=== PATIENT | female | born 1965 | race African-American/Black ===

== ENCOUNTER 2022-06-02 06:55 | Day surgery (SDC) | payer MEDICAID, SELFPAY ==
[2022-06-02] VITALS (11 sets, daily range): BP systolic 139–189; BP diastolic 61–76; PULSE 52–81; RESP 14–18; TEMP 36.1–36.7; O2SAT 94–100; BMI 24.2
[2022-06-02] MEDS: SODIUM CHLORIDE 0.9 % (FLUSH) 10 ML SYRINGE IVF (07:22)
[2022-06-02] MEDS: LACTATED RINGERS 1000 ML 1,000 ML 100 ML IV (07:23)
[2022-06-02] MEDS: BUPIVACAINE 0.25% 30 ML 10 ML INJECTION (08:20)
--- NOTE | 2022-06-02 09:21 | W.ANESCHARGE ---
Anesthesia Charges Start Date/Time Anesthesia Start Date: 06/02/22 Anesthesia Start Time: 07:49 Stop Date/Time Anesthesia Stop Date: 06/02/22 Anesthesia Stop Time: : Summary Emergency: No
--- NOTE | 2022-06-02 09:28 | PM.GSPRC ---
Operative Note Date of procedure: 06/02/22 Type of Procedure: Laparoscopic cholecystectomy Procedure Description: After discussing the risks and benefits of the procedure, the patient signed informed consent.? The operative site was marked and the patient was brought to the operating room and placed on the operating table in supine position.? Care was taken to pad the patient's pressure points.?? The patient was then intubated by anesthesia.?? The operative site was then prepped and draped in the usual sterile fashion.? A time-out was then performed. Entrance to the abdomen was gained via a 5 mm Visiport in the left upper quadrant. The abdomen was insufflated and briefly surveyed for signs of injury. There was none. A 10 mm umbilical port was placed through an existing umbilical hernia as well as 2 working ports along the right costal margin, all under direct vision. The patient was then placed in reverse Trendelenburg position with the right side up. The gallbladder fundus was grasped and retracted cephalad. A small amount of dissection was needed to free omental adhesions from the gallbladder. The infundibulum was grasped. A combination of hook cautery and blunt dissection was used to carefully dissect out the cystic duct and artery until they could clearly be seen entering the gallbladder without any intervening structures and the gallbladder was removed farther up the cystic plate to achieve the critical view. The cystic artery was clipped with 2 clips proximal 1 clip distal and divided. The patient's cystic duct was somewhat dilated in too large for a 5 mm clip. The fatty tissue around the duct was carefully dissected free attempting to completely dissect the duct, however again it was just too large for a 5 mm clip. Clips were placed at the gallbladder neck and the duct was transected with the scissors at the junction of the gallbladder neck and the cystic duct. This was done after gently milking any possible stones from the duct back into the gallbladder. Once this was done there was thick bile which spilled from the duct stump. this was suctioned. Finding no stones in the cystic duct, I then placed an 0 Vicryl as well as an 0 PDS endoloop around the cystic duct stump. The gallbladder was then taken off of the liver bed and removed from the abdomen using an Endo-Catch bag. The gallbladder bed was surveyed for hemostasis which appeared adequate. A small amount of bile which had spilled was suctioned from the abdomen. The ports were then removed and the abdomen desufflated. The patient had a umbilical hernia in which I had placed the umbilical port fascia through. Using cautery I freed up the umbilical skin from the fascia to facilitate closure of the fascia. This was done with a running 0 Vicryl suture. The remaining ports were then removed and the abdomen desufflated. The skin was closed with absorbable subcuticular suture. ? Sterile dressings were then applied. Instrument sponge and needle counts were correct at the end of the case. The patient was then woken and transferred to the PACU in stable condition. The patient tolerated the procedure well. Findings: Cholelithiasis. Small umbilical hernia Anesthesia: FERNANDO Surgeon: Sasha Nguyen MD Estimated blood loss (mL): 5 Condition: stable Disposition: PACU
[2022-06-02] MEDS: fentaNYL 100 MCG/2 ML inj 50 MCG IVP (09:35)
--- NOTE | 2022-06-02 09:59 | W.ANESCHARGE ---
Anesthesia Charges Start Date/Time Anesthesia Start Date: 06/02/22 Anesthesia Start Time: 07:49 Stop Date/Time Anesthesia Stop Date: 06/02/22 Anesthesia Stop Time: : Summary Emergency: No
[2022-06-02] MEDS: HYDROCODONE-ACETAMIN 5-325 MG 1 TAB PO (10:45)
== END 2022-06-02 10:50 | disposition home or self-care (01) ==
PROVIDERS: PCP Internal Medicine; Visit Provider Surgery
PROC: 0FT44ZZ Resection of Gallbladder, Percutaneous Endoscopic Approach (ICD-10-PCS; CPT 47562; principal; 2022-06-02 07:30)
DX: K80.10 Calculus of gallbladder with chronic cholecystitis without obstruction (principal); K42.9 Umbilical hernia without obstruction or gangrene
CPT/HCPCS: 47562; 790; 88304; A9270; J0330; J1100; J1885; J2250; J2405; J2704; J2710; J3010; J3490; J7120